=== PATIENT | male | born 1995 | race Caucasian/White ===

== ENCOUNTER 2018-02-07 11:30 | Outpatient (RCR) | payer OTHER | END 2018-02-10 13:55 | disposition home or self-care (01) | LOC: MKS.ESL.PT 11:30 | DX: S33.5XXD Sprain of ligaments of lumbar spine, subsequent encounter (principal); S33.6XXD Sprain of sacroiliac joint, subsequent encounter; X50.0XXD Overexertion from strenuous movement or load, subsequent encounter; Y99.0 Civilian activity done for income or pay ==

== ENCOUNTER 2018-03-20 08:45 | Outpatient (RCR) | payer OTHER | END 2018-03-20 09:21 | disposition home or self-care (01) | LOC: MKS.ESL.PT 08:45 | DX: S33.6XXD Sprain of sacroiliac joint, subsequent encounter (principal) ==